=== PATIENT | female | born 1995 | race Caucasian/White ===

== ENCOUNTER 2018-12-28 00:07 | Emergency (ER) | payer SELFPAY ==
[~2018-12-28] VITALS: Ht 175.3 cm; Wt 96.6 kg
--- OUTSIDE RECORDS SUMMARY | 2018-12-28 00:10 | XMS REPORT ---
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 Allergies, Adverse Reactions, Alerts This patient has no known allergies or adverse reactions. Medications This patient has no known medications.
[2018-12-28 03:03] VITALS: BP 122/69
== END 2018-12-28 03:22 | disposition home or self-care (01) ==
LOC: ER 00:07
DX: L02.31 Cutaneous abscess of buttock (principal)
CPT/HCPCS: 99282